=== PATIENT | female | born 1975 | race Caucasian/White ===

== ENCOUNTER 2016-09-27 05:43 | Emergency (ER) | payer SELFPAY ==
--- NOTE | 2016-10-01 19:20 | ER ---
ADMIT: 09/27/2016 RM/LOC: ER [facility] MR#: [id number] [address] [id number] [address] [place] [address] Emergency Room Report SEX: F AGE: 41 : 1975 DATE: 09/27/2016 Patient is a 41-year-old female with history of arthritis, noncompliant with medications. Works overnight. States while walking at work, she had increased pain in right ankle. Denies any injury. Exam remarkable for nontoxic, afebrile female with minimal joint effusion of right ankle. X-ray shows minor degenerative changes. Toradol 30 mg IM in department with improvement. Restart all home medications. Follow up Dr. Oscar as needed. May return to work. Keith Pichardo MD/ modl JOB #: [id number] CC: Keith Pichardo MD, Attending Physician Enid Oscar MD, Family Physician
== END 2016-09-27 06:30 | disposition home or self-care (01) ==
LOC: ER 05:43
DX: M19.071 Primary osteoarthritis, right ankle and foot (principal); F41.9 Anxiety disorder, unspecified; I10 Essential (primary) hypertension; F32.9 Major depressive disorder, single episode, unspecified